=== PATIENT | male | born 1955 | race Caucasian/White ===

== ENCOUNTER → 2020-02-01 | Day surgery (SDC) | payer BC ==
[2020-01-25 16:04] LABS: BASOPHILS % (AUTO) 0.4 % (0-1); EOSINOPHILS % (AUTO) 0.8 % (0-6); LYMPHOCYTES # (AUTO) 2.2 X10'3 (1.1-4.8); LYMPHOCYTES % (AUTO) 36.9 % (21-51); MEAN CORPUSCULAR HEMOGLOBIN 29.2 PG (27.0-31.0); MEAN CORPUSCULAR HGB CONC 33.4 g/dL (33.0-36.5); MEAN CORPUSCULAR VOLUME 87.5 FL (78-98); MONOCYTES # (AUTO) 0.6 X10'3 (0-0.9); MONOCYTES % (AUTO) 9.6 % (2-12); NEUTROPHILS # (AUTO) 3.1 X10'3 (1.8-7.7); NEUTROPHILS % (AUTO) 52.3 % (42-75); PRE OP HEMATOCRIT 51.5 % (42.0-52.0); PRE OP HEMOGLOBIN 17.2 g/dL (14.0-17.9); PRE OP PLATELET COUNT 281 X10'3 (140-440); RED BLOOD COUNT 5.89 X10'6 (4.70-6.10); RED CELL DISTRIBUTION WIDTH 13.2 % (11.5-14.5)
[2020-01-25 16:17] LABS: PRE OP INR 1.1 INR
[2020-01-25 16:30] LABS: ALBUMIN 3.9 G/DL (3.4-5.0); ALBUMIN/GLOBULIN RATIO 1.3 (1.1-1.5); ALKALINE PHOSPHATASE 87 IU/L (46-116); BLOOD UREA NITROGEN 14 MG/DL (7-18); BUN/CREATININE RATIO 9.3 (5.4-32.0); CALCIUM 8.7 MG/DL (8.5-10.1); CHLORIDE 105 MMOL/L (99-107); PRE OP ALT 52 U/L (30-65); PRE OP ANION GAP 7 (8-16); PRE OP AST 34 U/L (10-37); PRE OP BILIRUB, TOTAL 0.4 MG/DL (0.0-1.0); PRE OP GLUCOSE 79 MG/DL (70-104); PRE OP POTASSIUM 4.1 MMOL/L (3.4-5.1); PRE OP SODIUM 139 MMOL/L (135-145); TOTAL CARBON DIOXIDE 27.4 MMOL/L (24-32); eGFR 47 ML/MIN
[~2020-02-01] VITALS: Ht 177.8 cm; Wt 74.8 kg
[2020-02-01] VITALS (10 sets, daily range): BP systolic 108–132; BP diastolic 74–91
[~2020-02-01] MED LIST: ANAS1TAB49 PO; BORO1POW2; BUPR100T5 PO; CELE-193 PO; CYCL-1 PO; ESZO3TAB17 PO; FLAX100031 PO; FLO0.4C PO; HYDR-4353 PO; LIDOcaine 1% W/epiNEPHrine 1:100,000 20ml vial ONE; MAG PO; MELA3TAB70 PO; MONT10TA21 PO; POTA99TA21 PO; TEST200V10 IM; VITAMIN D3 PO; ZINC PO; [UNRECOGNIZED DRUG - CODE]; [UNRECOGNIZED DRUG - OTHER] PO; [UNRECOGNIZED DRUG - OTHER] PO; [UNRECOGNIZED DRUG - OTHER] PO; ceFAZolin 1000mg inj ONE; cefTAZidime 1gm inj ONE; cocaine 4% topical solution 4ml bottle ONE; famotidine 20mg tablet PO ONE; fentaNYL/PF 50MCG/1 ML 2ML syringe ONE; meperidine/PF 25mg/ml syringe IV PRN; methylPREDNISolone acetate 80mg/ml inj**IM only ONE; midazolam 2 mg/2 ml injection ONE; morphine 2 MG/ML inj. syringe IV PRN; morphine 4 MG/ML inj SYRINge IV PRN; mupirocin 2% ointment 22GM ONE; mupirocin 2% ointment 22GM TP SCH; ondansetron/PF 4mg/2ml inj IV PRN; oxymetazoline 15 ML nasal spray NS ONE; oxymetazoline 15 ML nasal spray NS SCH; proCHLORperazine 10 MG/2 ml inj IV PRN; propofol inj 20 ML IV ONE; ringers solution, lacted 1,000 ML IV SCH; salt irrigation nasal spray 45 ML SPRAY NS PRN
--- NOTE | 2020-02-01 11:44 | NUR ---
Received from OR via , accompanied by Anesthesiologist DR WOODY and report given by Anesthesiolgist. PT IS SLEEPING, NOT RESPONDING TO VOICE, SKIN WARM AND PINK, PIV PATENT 20G RIGHT HAND, COTTONOIDS SECURED WITH STRING AND TAPE, VSS.
== END | disposition home or self-care (01) ==
LOC: PAS 07:39
PROVIDERS: ATTEND Otolaryngology
DX: J34.3 Hypertrophy of nasal turbinates (principal); K21.9 Gastro-esophageal reflux disease without esophagitis; Z79.899 Other long term (current) drug therapy; Z79.2 Long term (current) use of antibiotics; Z98.890 Other specified postprocedural states; Z11.59 Encounter for screening for other viral diseases; Z79.01 Long term (current) use of anticoagulants
CPT/HCPCS: 30140; 36415; 80053; 82948; 85025; 85576; 85610; 85730; 87635; 93005; A6402; C9803; J0690; J0713; J1040; J2250; J2704; J3010; J7040; J7120; U0003; A4618; A7000